=== PATIENT | male | born 1970 | race Caucasian/White ===

== ENCOUNTER 2017-06-28 10:44 | Day surgery (SDC) | payer OTHER ==
[~2017-06-28 10:44] MED LIST: ONDANSETRON 4 MG INJ; PYRIDOSTIGMINE 10 MG
[2017-06-28] MEDS ORDERED: SOD CHLORIDE 0.9% 1,000 ML IV (11:00)
[2017-06-28] MEDS: CEFAZOLIN 2 GM/50 ML (PMX) 50 ML IVPB (11:00)
[2017-06-28] MEDS ORDERED: FENTAnyl 50 MCG/ML VIAL (12:18)
[2017-06-28] MEDS ORDERED: MIDAZOLAM 1 MG/ML 2 ML INJ ×2 (12:19→13:08)
[2017-06-28] MEDS ORDERED: PROPOFOL 20 ML (12:20)
[2017-06-28] MEDS ORDERED: LIDOCAINE 2% (SDV) 5 ML INJ (12:20)
[2017-06-28] MEDS ORDERED: CEFAZOLIN 1 GM INJ (13:00)
[2017-06-28] MEDS: POLYMYXIN/BACITRACIN 1L IRRIG (13:36)
[2017-06-28] MEDS: BUPIVACAINE 0.25% (MPF) 30 ML INJ (13:36)
[2017-06-28] MEDS ORDERED: FENTAnyl 50 MCG/ML VIAL IV ×2 (14:00)
[2017-06-28] MEDS ORDERED: ONDANSETRON 4 MG INJ IV (14:00)
[2017-06-28] MEDS ORDERED: MEPERIDINE 25 MG INJ IV (14:00)
[2017-06-28] MEDS ORDERED: HYDROmorphONE (0.2 MG/ML) 10ML SYG IV (14:00)
[2017-06-28] MEDS ORDERED: HYDROCODONE/APAP (5/325) TAB PO (14:00)
[2017-06-28] MEDS ORDERED: hydrALAzine 20 MG INJ IV (14:00)
[2017-06-28] MEDS ORDERED: LABETALOL HCL 20MG INJ IV (14:00)
[2017-06-28] MEDS ORDERED: KETOROLAC 30 MG INJ IV (14:00)
[2017-06-28] MEDS ORDERED: DIPHENHYDRAMINE 50 MG INJ IV (14:00)
[2017-06-28] MEDS ORDERED: KETOROLAC 15 MG INJ IV (14:00)
[2017-06-28] MEDS: HYDROmorphONE (0.2 MG/ML) 10ML SYG IV ×2 (14:04→14:16)
[2017-06-28] MEDS: METOCLOPRAMIDE 10 MG INJ IV (14:18)
== END 2017-06-28 15:30 | disposition home or self-care (01) ==
LOC: SDS 10:44
DX: K40.30 Unilateral inguinal hernia, with obstruction, without gangrene, not specified as recurrent (principal)
CPT/HCPCS: 49507